=== PATIENT | female | born 2000 | race Caucasian/White ===

== ENCOUNTER 2023-02-15 13:32 | Emergency (ER) | payer BC, SELFPAY ==
[2023-02-15 13:50] VITALS: BP 116/58; PULSE 84; RESP 18; TEMP 36.4; O2SAT 99
--- NOTE | 2023-02-15 14:06 | ED.URI ---
HPI - URI/Sore Throat General Chief Complaint: Upper Respiratory Infection Stated Complaint: sorethroat Source: patient Mode of arrival: ambulatory Limitations: no limitations History of Present Illness HPI Narrative: 22-year-old female presents to [facility] with complaints of sore throat, hoarse voice, cough, chest congestion and runny nose for the past 4-5 days. Patient is a smoker. Patient reports that her daughter recent similar symptoms. Patient denies recent travel. Patient has been taking [id number] Mucinex, DayQuil, Benadryl and using cough drops with minimal relief. Patient denies fever, body aches, chills, nausea, vomiting, diarrhea, shortness of breath or wheezing. MD elicited complaint: cough, rhinorrhea and nasal congestion Onset (ago): day(s) (4-5) Able to tolerate fluids by mouth: Yes Context: sick contacts Treatments prior to arrival: cold medicine Related Data Allergies Allergy/AdvReac Type Severity Reaction Status Date / Time Penicillins Allergy Unknown Verified 02/15/23 13:56 Review of Systems Constitutional: Constitutional: Denies chills, Denies fatigue, Denies fever(s) and Denies weakness ENT: Denies dysphagia, Denies vertigo, Denies dizziness, Denies epistaxis, Reports nasal congestion and Reports sore throat Cardiovascular: Cardiovascular: Denies chest pain Respiratory: Respiratory: Reports chest congestion, Reports cough, Denies dyspnea and Denies wheezing Gastrointestinal: Gastrointestinal: Denies diarrhea, Denies nausea and Denies vomiting Musculoskeletal: Musculoskeletal: Denies arthralgias and Denies joint swelling Integumentary/Breasts: Skin/Breast: Denies rash Neurologic: Denies dizziness, Denies syncope and Denies headache(s) PMFSH Social History Social History (Updated 02/15/23 @ 14:09 by Jennifer Munson APRN) Smoking status: Current every day smoker Comments At time of signature, I agree with nursing past medical, surgical, social and family history. There is no relevant family history pertinent to the presenting complaint. Exam Const: General: healthy appearing and no acute distress Nutritional Appearance: well nourished Orientation/consciousness: patient oriented x3 Limitations: no limitations HENMT: Head: normal to inspection Ears: external ears normal, TM's normal bilaterally and EAC's normal Face/Nose/Sinus: Nasal discharge present clear bilateral Face and sinus: normal facial exam Mouth: Yes Normal oral and palatal mucosa present and Yes moist mucous membranes Throat: posterior oropharynx normal and uvula midline Other: Moderate nasal congestion noted Eyes: Conjunctivae: conjunctivae normal Neck: Neck: normal visual inspection Resp: Effort & Inspection: normal respiratory effort and not labored Auscultation: clear to auscultation bilaterally, no crackles, no rales, no rhonchi and no wheezes Cardio: Rate: regular rate Rhythm: regular rhythm Heart sounds: no murmurs Skin: General skin exam: normal color Rashes: no rashes Wounds: no wounds Neuro: General: patient oriented x3 Speech: normal speech Psych: Affect: normal affect Attitude: cooperative Course Course Level of Care: Express Care Visit Vital Signs Vital signs: Vital Signs Temperature 36.4 C 02/15/23 13:50 Pulse Rate 84 02/15/23 13:50 Respiratory Rate 18 02/15/23 13:50 Blood Pressure 116/58 L 02/15/23 13:50 Pulse Oximetry 99 02/15/23 13:50 Oxygen Delivery Room Air 02/15/23 13:50 Temperature 36.4 C 02/15/23 13:50 Pulse Rate 84 02/15/23 13:50 Respiratory Rate 18 02/15/23 13:50 Blood Pressure 116/58 L 02/15/23 13:50 Pulse Oximetry 99 02/15/23 13:50 Oxygen Delivery Room Air 02/15/23 13:50 MDM - URI/Sore Throat MDM Narrative Medical decision making narrative: Patient agrees to take medications as prescribed. Work excuse provided for patient. Patient agrees to proceed to the emergency room symptoms worsen. Differential Di
== END 2023-02-15 14:16 | disposition home or self-care (01) ==
PROVIDERS: Emergency Provider Nurse Practitioner Family; PCP Family Medicine
DX: J06.9 Acute upper respiratory infection, unspecified (principal); F17.200 Nicotine dependence, unspecified, uncomplicated
CPT/HCPCS: 99203; G0463

== ENCOUNTER 2023-11-02 14:48 | Emergency (ER) | payer BC, SELFPAY ==
[2023-11-02 14:58] VITALS: BP 135/77; PULSE 96; RESP 20; TEMP 36.7; O2SAT 99
--- NOTE | 2023-11-02 15:18 | ED.EYEPROB ---
HPI - Eye Problem General Chief complaint: Eye Problems Stated complaint: right eye red,discharge Time Seen by Provider: 11/02/23 15:25 Source: patient, RN notes reviewed and old records reviewed Mode of arrival: ambulatory Limitations: no limitations History of Present Illness HPI Narrative: 23-year-old female presents to the [facility] with complaints right eye redness and discharge x2 days. Reports child had conjunctivitis as well. Denies any blurry vision or change of vision. Onset (ago): day(s) (2) Treatments Prior to Arrival: none Related Data Allergies Allergy/AdvReac Type Severity Reaction Status Date / Time Penicillins Allergy Unknown Verified 11/02/23 15:33 Review of Systems Review of Systems: All systems reviewed & are unremarkable except as noted in HPI and below Constitutional: Constitutional: Reports no additional constitutional complaints Eyes: Eyes: Reports as per HPI, Reports eye discharge and Reports itchy eyes ENT: Reports system reviewed and no additional complaints, except as documented Cardiovascular: Cardiovascular: Reports no additional cardiovascular complaints, Denies chest pain and Denies dyspnea Respiratory: Respiratory: Reports no additional respiratory complaints, Denies chest congestion, Denies cough and Denies dyspnea Gastrointestinal: Gastrointestinal: Reports no additional gastrointestinal complaints, Denies abdominal pain, Denies nausea and Denies vomiting Musculoskeletal: Musculoskeletal: Reports no additional musculoskeletal complaints Integumentary/Breasts: Skin/Breast: Reports system reviewed and no additional complaints, except as docu Neurologic: Reports system reviewed and no additional complaints, except as documented Psychiatric: Psychiatric: Reports no additional psychiatric complaints Allergic/Immunologic: Allergic/Immunologic: Reports no additional allergic/immunologic complaints PMFSH Social History Social History Smoking status: Current every day smoker Comments At the time of my signature, I reviewed and agree with the nursing past medical, surgical, social, and family history. There is no relevant family history pertinent to the patient complaint. Exam Const: General: cooperative, healthy appearing, comfortable, no acute distress, well developed, alert and well nourished Nutritional Appearance: well nourished Orientation/consciousness: patient oriented x3 Limitations: no limitations HENMT: Head: normal to inspection Ears: hearing grossly normal bilaterally and external ears normal Face/Nose/Sinus: Normal external nose present, Normal nares present, Normal nasal mucous membranes and turbinates present, normal facial exam and face symmetric Face and sinus: normal facial exam and face symmetric Mouth: Yes Normal oral and palatal mucosa present, Yes lip normal and Yes moist mucous membranes Throat: posterior oropharynx normal and uvula midline Eyes: General: appearance normal, both eyes and all related structures Alignment and Position: alignment normal Periorbital: periorbital findings normal Eyelids: eyelids normal Conjunctivae: conjunctival abnormality right conjunctival injection localized and discharge purulent Pupils: Equal, round and reactive pupils present EOM: EOMs intact bilaterally Neck: Neck: normal visual inspection, full ROM, no lymphadenopathy and no meningeal signs Chest: Chest palpation & inspection: normal inspection of the chest Resp: Effort & Inspection: normal respiratory effort and able to speak in complete sentences Auscultation: clear to auscultation bilaterally, no crackles, no rales, no rhonchi and no wheezes Cardio: Rate: regular rate Rhythm: regular rhythm Back/Spine/Pelvis: Cervical Spine: cervical ROM normal Skin: General skin exam: normal color and no rashes or lesions noted Lesions: no lesions Rashes: no rashes Wounds: no wounds Neuro: General: patient oriented x
== END 2023-11-02 15:52 | disposition home or self-care (01) ==
PROVIDERS: Emergency Provider Nurse Practitioner; PCP Family Medicine
DX: H10.31 Unspecified acute conjunctivitis, right eye (principal); F17.200 Nicotine dependence, unspecified, uncomplicated
CPT/HCPCS: 99213; G0463